=== PATIENT | female | born 1965 | race Caucasian/White ===

== ENCOUNTER 2020-06-15 16:35 | Emergency (ER) | payer SELFPAY ==
[2020-06-15 16:51] VITALS: BP 137/55; PULSE 98
[2020-06-15] MEDS ORDERED: Diazepam 5 MG Tab PO ONE (17:07)
--- NOTE | 2020-06-15 17:10 | EDM.PDOC ---
ED HPI GENERAL MEDICAL PROBLEM - General Chief Complaint: Back Pain or Injury Stated Complaint: LOWER RT BACK PAIN Time Seen by Provider: 06/15/20 16:55 Source of Information: Reports: Patient, Old Records, RN History Limitations: Reports: No Limitations - History of Present Illness INITIAL COMMENTS - FREE TEXT/NARRATIVE: 54 yo female was lifting some water jugs yesterday and toward the end of the day experienced L low back pain and tightness. No bowel or bladder dysfunction. No numbness or weakness of her legs. No increased pain with coughing. No self tx. Is not missing work. Had Flexeril in the past without relief. Onset: Gradual Onset Date: 06/14/20 Duration: Day(s): (1), Constant Location: Reports: Back Quality: Reports: Ache Severity: Severe Improves with: Reports: Rest Worsens with: Reports: Movement Context: Reports: Other (see HPI) Associated Symptoms: Reports: No Other Symptoms Treatments BILL CLERK: Reports: Acetaminophen (one single dose) Lower Back Pain Score (Numeric/FACES): 7 - Related Data Allergies Allergy/AdvReac Type Severity Reaction Status Date / Time No Known Allergies Allergy Verified 12/23/13 06:04 Home Meds: Home Meds Levothyroxine Sodium 125 mcg PO DAILY 11/22/13 [History] FLUoxetine HCl [Prozac] 20 mg PO DAILY 12/08/13 [History] Acetaminophen 500 mg PO Q6H PRN 06/15/20 [History] Past Medical History HEENT History: Reports: Impaired Vision Other Cardiovascular History: prolapsed mitral valve Musculoskeletal History: Reports: Back Pain, Chronic Endocrine/Metabolic History: Reports: Hypothyroidism Other Endocrine/Metabolic History: graves disease - Infectious Disease History Infectious Disease History: Reports: Chicken Pox - Past Surgical History GI Surgical History: Reports: Cholecystectomy Musculoskeletal Surgical History: Reports: Knee Replacement, Shoulder Replacement, Other (See Below) Other Musculoskeletal Surgeries/Procedures:: wrist surgery Social & Family History - Tobacco Use Tobacco Use Status *Q: Light Tobacco User Years of Tobacco use: 25 Packs/Tins Daily: 0.2 Used Tobacco, but Quit: No - Caffeine Use Caffeine Use: Reports: Coffee, Energy Drinks - Recreational Drug Use Recreational Drug Use: No ED ROS GENERAL - Review of Systems Review Of Systems: See Below Constitutional: Reports: No Symptoms : Reports: No Symptoms Musculoskeletal: Reports: Back Pain Skin: Reports: No Symptoms Neurological: Reports: No Symptoms ED EXAM,LOWER BACK PAIN/INJURY - Physical Exam Exam: See Below Exam Limited By: No Limitations General Appearance: Alert, WD/WN, No Apparent Distress Back Exam: Normal Inspection, Decreased Range of Motion, Muscle Spasm (R lumbar paraspinous), Paraspinal Tenderness (R lumbar). No: CVA Tenderness (R), CVA Tenderness (L), Vertebral Tenderness Extremities: Normal Inspection Neurological: Alert, Normal Mood/Affect, CN II-XII Intact, No Motor/Sensory Deficits, Oriented x 3 Psychiatric: Normal Affect, Normal Mood Skin Exam: Warm, Dry, Intact, Normal Color, No Rash Course - Vital Signs Last Recorded V/S: Last Vital Signs Temp 38 C 06/15/20 16:49 Pulse 98 06/15/20 16:49 Resp 20 06/15/20 16:49 BP 137/55 L 06/15/20 16:49 Pulse Ox 97 06/15/20 16:49 Departure - Departure Time of Disposition: 17:06 Disposition: Home, Self-Care 01 Condition: Fair Clinical Impression: Muscle spasm - Discharge Information *PRESCRIPTION DRUG MONITORING PROGRAM REVIEWED*: No *COPY OF PRESCRIPTION DRUG MONITORING REPORT IN PATIENT MORENO: No Instructions: Muscle Strain, [id number] Referrals: Pau Trimble CNM [Primary Care Provider] - Additional Instructions: Take ibuprofen 600 mg every 6 hrs with food. Add acetaminophen 1000 mg every 6 hrs for added relief. Use diazepam as directed for the spasm. Avoid lifting, bending, or twisting. Apply moist heat to area and massage Chevy[place]Nolan or other agent over the area. Recheck with your doctor as needed. Sepsis Event Note (ED) - Evaluation Sepsis Screening Result: No Definite Risk - Focused Exam Vital Signs: Vital Signs Temp Pulse Resp BP Pulse Ox 06/15/20 16:49 38 C 98 20 137/55 L 97
== END 2020-06-15 17:28 | disposition home or self-care (01) ==
LOC: JP.ED 16:35
DX: M62.830 Muscle spasm of back (principal); E03.9 Hypothyroidism, unspecified; Z72.0 Tobacco use; Z79.899 Other long term (current) drug therapy
CPT/HCPCS: 99283; A9270

== ENCOUNTER 2020-08-30 22:15 | Emergency (ER) | payer MEDICAID ==
--- NOTE | 2020-08-30 22:55 | EDM.PDOCBH ---
ED HPI GENERAL MEDICAL PROBLEM - General Chief Complaint: Drug or Alcohol Abuse Stated Complaint: POSSIBLE OVERDOSE Time Seen by Provider: 08/30/20 22:35 Source of Information: Reports: Patient, Family, Old Records, RN History Limitations: Reports: No Limitations - History of Present Illness INITIAL COMMENTS - FREE TEXT/NARRATIVE: 54 yo female who has been depressed recently ingested roughly 5 x 10 mg Ambien and some alcohol tonight. Is here with her sister. Cecile has recently gone through a divorce and recently moved back to this area after the divorce. The sister does not believe that Cecile took any other medications tonight. Onset: Today (ingestion), Gradual (worsening of her depression. ) Onset Date: 08/30/20 Duration: Hour(s): (~1), Constant Location: Reports: Generalized Quality: Reports: Other (pain not reported) Severity: Moderate Improves with: Reports: None Worsens with: Reports: Other (ingestions) Context: Reports: Other (See HPI) Associated Symptoms: Reports: Malaise (since her ingestions). Denies: Nausea/Vomiting Treatments PACKAGE REINSPECTOR: Reports: Other (see below) (none) - Related Data Allergies Allergy/AdvReac Type Severity Reaction Status Date / Time No Known Allergies Allergy Verified 08/30/20 22:56 Home Meds: Home Meds Levothyroxine Sodium 150 mcg PO DAILY 11/22/13 [History] FLUoxetine HCl [Prozac] 10 mg PO DAILY 12/08/13 [History] Acetaminophen 500 mg PO Q6H PRN 06/15/20 [History] Past Medical History HEENT History: Reports: Impaired Vision Other Cardiovascular History: prolapsed mitral valve Musculoskeletal History: Reports: Back Pain, Chronic Endocrine/Metabolic History: Reports: Hypothyroidism Other Endocrine/Metabolic History: graves disease - Infectious Disease History Infectious Disease History: Reports: Chicken Pox - Past Surgical History GI Surgical History: Reports: Cholecystectomy Musculoskeletal Surgical History: Reports: Knee Replacement, Shoulder Replacement, Other (See Below) Other Musculoskeletal Surgeries/Procedures:: wrist surgery Social & Family History - Caffeine Use Caffeine Use: Reports: Coffee, Energy Drinks ED ROS GENERAL - Review of Systems Review Of Systems: See Below Constitutional: Reports: No Symptoms HEENT: Reports: No Symptoms Respiratory: Reports: No Symptoms Cardiovascular: Reports: No Symptoms GI/Abdominal: Reports: No Symptoms : Reports: No Symptoms Musculoskeletal: Reports: No Symptoms Skin: Reports: No Symptoms Neurological: Reports: Other (sleepy) Psychiatric: Reports: Depression, Other (says she took the Ambien just to sleep due to not being able to sleep for quite awhile. ) ED EXAM, BEHAVIORAL HEALTH - Physical Exam Exam: See Below Exam Limited By: Other (sedation) General Appearance: Alert, WD/WN, No Apparent Distress, Lethargic Eye Exam: Bilateral Eye: Conjunctival Injection, Normal Inspection Ears: Normal External Exam, Normal Canal, Hearing Grossly Normal, Normal TMs Nose: Normal Inspection, No Blood Throat/Mouth: Normal Inspection, Normal Lips, Normal Oropharynx, Normal Voice, No Airway Compromise Head: Atraumatic, Normocephalic Neck: Normal Inspection Respiratory/Chest: No Respiratory Distress, Lungs Clear, Normal Breath Sounds, No Accessory Muscle Use Cardiovascular: Regular Rate, Rhythm, No Edema GI/Abdominal: Soft, Non-Tender, No Distention Extremities: Normal Inspection, Normal Range of Motion, Non-Tender, No Pedal Edema Neurological: CN II-XII Intact, Inattentive, Other (somnolent) Psychiatric: Flat Affect, Inattentive, Poor Eye Contact Skin Exam: Warm, Dry, Intact, Normal color, No rash COURSE, BEHAVIORAL HEALTH COMP - Course Vital Signs: Last Vital Signs Temp 36.4 C 08/30/20 23:02 Pulse 74 08/30/20 23:02 Resp 18 08/30/20 23:02 BP 118/64 08/30/20 23:02 Pulse Ox 94 L 08/30/20 23:02 Orders, Labs, Meds: Laboratory Tests 08/30/20 08/30/20 08/30/20 Range/Units 22:36 22:36 22:48 WBC (4.5-11.0) K/uL RBC (3.30-5.50) M/uL Hgb (12.0-15.0) g/dL Hct (36.0-48.0) % MCV (80-98) fL MCH (27-31) pg MCHC (32-36) % Plt Count (150-400) K/uL Sodium (140-148) mmol/L Potassium (3.6-5.2) mmol/L Chloride (100-108) mmol/L Carbon Dioxide (21-32) mmol/L Anion Gap (5.0-14.0) mmol/L BUN (7-18) mg/dL Creatinine (0.6-1.0) mg/dL Est Cr Clr Drug Dosing Estimated GFR (MDRD) (>60) Glucose (74-106) mg/dL Calcium (8.5-10.1) mg/dL TSH, Ultra Sensitive (0.358-3.740) uIU/mL Urine Color Yellow (YELLOW) Urine Appearance Clear (CLEAR) Urine pH 7.0 (5.0-8.0) Ur Specific [place] 1.015 (1.008-1.030) Urine Protein Negative (NEGATIVE) mg/dL Urine Glucose (UA) Negative (NEGATIVE) mg/dL Urine Ketones Negative (NEGATIVE) mg/dL Urine Occult Blood Negative (NEGATIVE) Urine Nitrite Negative (NEGATIVE) Urine Bilirubin Negative (NEGATIVE) Urine Urobilinogen 0.2 (0.2-1.0) EU/dL Ur Leukocyte Esterase Negative (NEGATIVE) Urine RBC Not seen (0-5) Urine WBC Not seen (0-5) Ur Epithelial Cells Not seen Amorphous Sediment Not seen Urine Bacteria Not seen Urine Mucus Not seen Salicylates (2.0-20.0) mg/dL Urine Opiates Screen Negative (NEGATIVE) Ur Oxycodone Screen Negative (NEGATIVE) Urine Methadone Screen Negative (NEGATIVE) Ur Propoxyphene Screen Negative (NEGATIVE) Acetaminophen (10.0-30.0) ug/mL Ur Barbiturates Screen Negative (NEGATIVE) Ur Tricyclics Screen Negative (NEGATIVE) Ur Phencyclidine Scrn Negative (NEGATIVE) Ur Amphetamine Screen Negative (NEGATIVE) U Methamphetamines Scrn Negative (NEGATIVE) Urine MDMA Screen Negative (NEGATIVE) U Benzodiazepines Scrn Presumptive positive H (NEGATIVE) U Cocaine Metab Screen Negative (NEGATIVE) U Marijuana (THC) Screen Negative (NEGATIVE) Ethyl Alcohol 6 mg/dL 08/30/20 08/30/20 08/30/20 Range/Units 22:48 22:48 22:48 WBC 7.4 (4.5-11.0) K/uL RBC 4.14 (3.30-5.50) M/uL Hgb 13.2 (12.0-15.0) g/dL Hct 39.5 (36.0-48.0) % MCV 95 (80-98) fL MCH 32 H (27-31) pg MCHC 33 (32-36) % Plt Count 350 (150-400) K/uL Sodium 145 (140-148) mmol/L Potassium 3.8 (3.6-5.2) mmol/L Chloride 105 (100-108) mmol/L Carbon Dioxide 26 (21-32) mmol/L Anion Gap 13.6 (5.0-14.0) mmol/L BUN 12 D (7-18) mg/dL Creatinine 0.8 (0.6-1.0) mg/dL Est Cr Clr Drug Dosing TNP Estimated GFR (MDRD) > 60 (>60) Glucose 118 H (74-106) mg/dL Calcium 9.8 (8.5-10.1) mg/dL TSH, Ultra Sensitive 0.152 L (0.358-3.740) uIU/mL Urine Color (YELLOW) Urine Appearance (CLEAR) Urine pH (5.0-8.0) Ur Specific [place] (1.008-1.030) Urine Protein (NEGATIVE) mg/dL Urine Glucose (UA) (NEGATIVE) mg/dL Urine Ketones (NEGATIVE) mg/dL Urine Occult Blood (NEGATIVE) Urine Nitrite (NEGATIVE) Urine Bilirubin (NEGATIVE) Urine Urobilinogen (0.2-1.0) EU/dL Ur Leukocyte Esterase (NEGATIVE) Urine RBC (0-5) Urine WBC (0-5) Ur Epithelial Cells Amorphous Sediment Urine Bacteria Urine Mucus Salicylates 3.2 (2.0-20.0) mg/dL Urine Opiates Screen (NEGATIVE) Ur Oxycodone Screen (NEGATIVE) Urine Methadone Screen (NEGATIVE) Ur Propoxyphene Screen (NEGATIVE) Acetaminophen 0.0 L (10.0-30.0) ug/mL Ur Barbiturates Screen (NEGATIVE) Ur Tricyclics Screen (NEGATIVE) Ur Phencyclidine Scrn (NEGATIVE) Ur Amphetamine Screen (NEGATIVE) U Methamphetamines Scrn (NEGATIVE) Urine MDMA Screen (NEGATIVE) U Benzodiazepines Scrn (NEGATIVE) U Cocaine Metab Screen (NEGATIVE) U Marijuana (THC) Screen (NEGATIVE) Ethyl Alcohol mg/dL Medical Clearance: 08/31/20 00:03 Medically stable, will let her sleep off the Ambien and alcohol and get a Crisis consult in the morning. Discharge vs Psych Eval/Treatment:: 08/31/20 01:57 Crisis was called and per a phone consult felt patient could be discharged to home if her sister would stay with her. Departure - Departure Time of Disposition: 02:15 Disposition: Home, Self-Care 01 Condition: Fair Clinical Impression: Ambien accidental overdose Qualifiers: Encounter type: initial encounter Qualified Code(s): T42.6X1A - Poisoning by other antiepileptic and sedative-hypnotic drugs, accidental (unintentional), initial encounter Depression Qualifiers: Depression Type: unspecified Qualified Code(s): F32.9 - Major depressive disorder, single episode, unspecified Insomnia Qualifiers: Insomnia type: unspecified Qualified Code(s): G47.00 - Insomnia, unspecified - Discharge Information *PRESCRIPTION DRUG MONITORING PROGRAM REVIEWED*: Not Applicable *COPY OF PRESCRIPTION DRUG MONITORING REPORT IN PATIENT MORENO: Not Applicable Referrals: PCP,None [Primary Care Provider] - Forms: ED Department Discharge Additional Instructions: F/U with your primary care provider to discuss your depression and sleep issues. Also, your thyroid looks to be a bit over treated as your TSH today was low at 0.152. Return as needed. Sepsis Event Note (ED) - Focused Exam Vital Signs: Vital Signs Temp Pulse Resp BP Pulse Ox 08/30/20 23:02 36.4 C 74 18 118/64 94 L 08/30/20 22:33 36.4 C 74 18 118/64 94 L
[2020-08-31 02:35] VITALS: BP 133/85; PULSE 65
== END 2020-08-31 02:28 | disposition home or self-care (01) ==
LOC: JP.ED 22:15
DX: T42.6X1A Poisoning by other antiepileptic and sedative-hypnotic drugs, accidental (unintentional), initial encounter (principal); F32.9 Major depressive disorder, single episode, unspecified; G47.00 Insomnia, unspecified; E03.9 Hypothyroidism, unspecified; Z79.899 Other long term (current) drug therapy
CPT/HCPCS: 36415; 80048; 80143; 80179; 80305-QW; 80307; 81001; 84443; 85027; 99284

== ENCOUNTER 2021-04-04 13:17 | Emergency (ER) | payer MEDICAID ==
--- NOTE | 2021-04-04 14:32 | EDM.PDOC ---
ED HPI GENERAL MEDICAL PROBLEM - General Chief Complaint: Cardiovascular Problem Stated Complaint: IRREGULAR HEARTBEAT SINCE LAST NIGHT Time Seen by Provider: 04/04/21 14:29 Source of Information: Reports: Patient History Limitations: Reports: No Limitations - History of Present Illness INITIAL COMMENTS - FREE TEXT/NARRATIVE: pt has been having palpitations and just had a bernstein monitor. Megan Trimble called in a perscription for metoprol 25 and she was just going to fill that. Onset: Gradual, Other ( it was worse last nite and she felt like it was very irregular. ) Duration: Hour(s): Location: Reports: Chest Associated Symptoms: Reports: Other (heart irregularity. ) - Related Data Allergies Allergy/AdvReac Type Severity Reaction Status Date / Time No Known Allergies Allergy Verified 04/04/21 13:38 Home Meds: Home Meds Levothyroxine Sodium 137 mcg PO DAILY 11/22/13 [History] FLUoxetine HCl [Prozac] 10 mg PO DAILY 12/08/13 [History] Acetaminophen 500 mg PO Q6H PRN 06/15/20 [History] Metoprolol Tartrate 25 mg PO BID 04/04/21 [History] Past Medical History HEENT History: Reports: Impaired Vision Other Cardiovascular History: prolapsed mitral valve Musculoskeletal History: Reports: Back Pain, Chronic Endocrine/Metabolic History: Reports: Hypothyroidism Other Endocrine/Metabolic History: graves disease - Infectious Disease History Infectious Disease History: Reports: Chicken Pox - Past Surgical History GI Surgical History: Reports: Cholecystectomy Musculoskeletal Surgical History: Reports: Knee Replacement, Shoulder Replacement, Other (See Below) Other Musculoskeletal Surgeries/Procedures:: wrist surgery Social & Family History - Tobacco Use Tobacco Use Status *Q: Light Tobacco User Years of Tobacco use: 30 Packs/Tins Daily: 0.3 - Caffeine Use Caffeine Use: Reports: Coffee, Soda - Recreational Drug Use Recreational Drug Use: No ED ROS GENERAL - Review of Systems Review Of Systems: See Below Constitutional: Reports: No Symptoms HEENT: Reports: No Symptoms Respiratory: Reports: No Symptoms Cardiovascular: Reports: Palpitations Endocrine: Reports: No Symptoms GI/Abdominal: Reports: No Symptoms : Reports: No Symptoms Musculoskeletal: Reports: No Symptoms Skin: Reports: No Symptoms ED EXAM, GENERAL - Physical Exam Exam: See Below Free Text/Narrative:: pt arrived feeling like her heart was pounding hard and irregular. she did not have chest pain. She had difficulty sleeping last nite because of the rhythm. Exam Limited By: No Limitations General Appearance: Alert, No Apparent Distress, Anxious Ears: Normal TMs Nose: Normal Inspection Throat/Mouth: Normal Inspection Head: Atraumatic Neck: Normal Inspection Respiratory/Chest: No Respiratory Distress Cardiovascular: Extra Beats, Other (pt has a basic sinus rhythm with ectopics. This is what showed up on the holter monitor. ) GI/Abdominal: Soft, Non-Tender (Female) Exam: Deferred Rectal (Female) Exam: Deferred Back Exam: Normal Inspection Extremities: Normal Inspection Neurological: Alert, Oriented Psychiatric: Anxious Course - Vital Signs Last Recorded V/S: Last Vital Signs Temp 36.7 C 04/04/21 13:36 Pulse 70 04/04/21 15:07 Resp 19 04/04/21 15:07 BP 125/77 04/04/21 15:07 Pulse Ox 94 L 04/04/21 13:36 - Orders/Labs/Meds Labs: Laboratory Tests 04/04/21 04/04/21 04/04/21 Range/Units 14:39 14:39 14:39 WBC 7.4 (4.5-11.0) K/uL RBC 4.70 (3.30-5.50) M/uL Hgb 14.8 (12.0-15.0) g/dL Hct 42.7 (36.0-48.0) % MCV 91 (80-98) fL MCH 32 H (27-31) pg MCHC 35 (32-36) % Plt Count 334 (150-400) K/uL Neut % (Auto) 41.6 (36-66) % Lymph % (Auto) 41.6 (24-44) % [place] % (Auto) 11.1 H (2-6) % Eos % (Auto) 5.0 H (2-4) % Baso % (Auto) 0.7 (0-1) % Sodium 143 (140-148) mmol/L Potassium 4.1 (3.6-5.2) mmol/L Chloride 108 (100-108) mmol/L Carbon Dioxide 25 (21-32) mmol/L Anion Gap 9.8 (5.0-14.0) mmol/L BUN 11 (7-18) mg/dL Creatinine 0.8 (0.6-1.0) mg/dL Est Cr Clr Drug Dosing 74.38 mL/min Estimated GFR (MDRD) > 60 (>60) Glucose 114 H (74-106) mg/dL Calcium 8.9 (8.5-10.1) mg/dL Magnesium 1.9 (1.8-2.4) mg/dL Total Bilirubin 0.2 (0.2-1.0) mg/dL AST 12 L (15-37) U/L ALT 23 (12-78) U/L Alkaline Phosphatase 94 (46-116) U/L Total Protein 6.7 (6.4-8.2) g/dL Albumin 3.5 (3.4-5.0) g/dL Globulin 3.2 (2.3-3.5) g/dL Albumin/Globulin Ratio 1.1 L (1.2-2.2) Meds: Medications Discontinued Medications Generic Name Dose Route Start Last Admin Trade Name Freq PRN Reason Stop Dose Admin Metoprolol Tartrate 25 mg 04/04/21 14:38 04/04/21 14:55 Metoprolol Tartrate 25 Mg Tab PO 04/04/21 14:39 25 mg ONETIME ONE Administration - Re-Assessments/Exams Free Text/Narrative Re-Assessment/Exam: 04/04/21 15:18 her rhythm shows frequent ectopics which does reset the rhythm, She has just been put on metoprol. Her electrolytes look great. She was given 25 of metoprol while in er. Departure - Departure Time of Disposition: 15:12 Disposition: Home, Self-Care 01 Condition: Fair Clinical Impression: Irregular heart rhythm Referrals: Pau Trimble CNM [Primary Care Provider] - Forms: ED Department Discharge Care Plan Goals: pt is to take the metoprol and followup with Megan Trimble in 1 week Sepsis Event Note (ED) - Evaluation Sepsis Screening Result: No Definite Risk - Focused Exam Vital Signs: Vital Signs Temp Pulse Pulse Resp BP BP Pulse Ox 04/04/21 15:07 70 19 125/77 04/04/21 14:56 80 16 128/68 04/04/21 14:55 80 128/68 04/04/21 13:36 36.7 C 89 24 H 124/78 94 L
[2021-04-04] MEDS ORDERED: Metoprolol Tartrate 25 MG Tab PO ONE (14:38)
[2021-04-04 15:07] VITALS: BP 125/77; PULSE 70
== END 2021-04-04 15:31 | disposition home or self-care (01) ==
LOC: JP.ED 13:17
DX: I49.9 Cardiac arrhythmia, unspecified (principal); E03.9 Hypothyroidism, unspecified; Z79.899 Other long term (current) drug therapy; Z72.0 Tobacco use
CPT/HCPCS: 36415; 80053; 83735; 85025; 99284; A9270

== ENCOUNTER 2021-07-11 17:49 | Emergency (ER) | payer MEDICAID ==
[2021-07-11] MEDS ORDERED: Sodium Chloride 0.9% 10 ML Syringe FLUSH PRN (17:57)
[2021-07-11 18:05] VITALS: BP 140/63; PULSE 94
== END 2021-07-11 18:59 | disposition home or self-care (01) ==
LOC: JP.ED 17:49
DX: R06.02 Shortness of breath (principal); E03.9 Hypothyroidism, unspecified; Z79.899 Other long term (current) drug therapy
CPT/HCPCS: 36415; 71045; 71045-26; 80048; 85025; 85379; 93005; 93010; 99282; 99285-25

== ENCOUNTER 2021-09-21 08:18 | Day surgery (SDC) | payer MEDICAID ==
[~2021-09-21 08:18] MED LIST: Midazolam 1 MG/ML 2 ML SDV ONE; Propofol 200 MG/20 ML SDV ONE; fentaNYL 100 MCG/2 ML SDV ONE
[2021-09-21] MEDS ORDERED: Sodium Chloride 0.9% 1,000 ML IV SCH (09:30)
[2021-09-21 11:17] VITALS: BP 102/75; PULSE 73
== END 2021-09-21 11:32 | disposition home or self-care (01) ==
LOC: JP.SDS 08:18
PROVIDERS: ATTEND Surgery
DX: Z12.11 Encounter for screening for malignant neoplasm of colon (principal); I10 Essential (primary) hypertension
CPT/HCPCS: J2250; J2704; J3010; J7030

== ENCOUNTER 2022-09-24 16:03 | Emergency (ER) | payer MEDICAID ==
[2022-09-24 17:03] VITALS: BP 129/59; PULSE 58
== END 2022-09-24 17:15 | disposition home or self-care (01) ==
LOC: JP.ED 16:03
DX: R00.2 Palpitations (principal); I10 Essential (primary) hypertension; E03.9 Hypothyroidism, unspecified; Z86.16 Personal history of COVID-19; Z87.891 Personal history of nicotine dependence; Z79.899 Other long term (current) drug therapy
CPT/HCPCS: 93005; 99284

== ENCOUNTER 2022-11-23 17:23 | Emergency (ER) | payer MEDICAID ==
[2022-11-23] MEDS ORDERED: Ondansetron 4 MG/2 ML SDV IVPUSH ONE (18:18)
[2022-11-23] MEDS ORDERED: Ketorolac 30 MG/ML SDV IVPUSH ONE (18:18)
[2022-11-23] MEDS ORDERED: Iopamidol 612 MG/ML 100 ML Bottle IV SCH (18:30)
[2022-11-23] MEDS ORDERED: Lactated Ringers 1,000 ML IV SCH (18:30)
[2022-11-23] MEDS ORDERED: cefTRIAXone 1 GM in Sodium Chloride 0.9% 50 ML IV SCH (18:30)
[2022-11-23] MEDS ORDERED: Sodium Chloride 0.9% 50 ML IV SCH (18:30)
[2022-11-23 18:36] LABS: BASOPHILS ABSOLUTE AUTO 0.03 K/uL (0.00-0.10); BASOPHILS PERCENT AUTO 0.4 % (0.1-1.3); EOSINOPHILS PERCENT AUTO 0.2 % (0.0-5.4); HEMATOCRIT 39.5 % (34.3-46.0); HEMOGLOBIN 13.6 g/dL (11.2-15.5); IMMATURE GRAN ABSOLUTE AUTO 0.05 K/uL (0.00-0.23); IMMATURE GRAN PERCENT AUTO 0.6 % (0.0-0.7); LYMPHOCYTES ABSOLUTE AUTO 1.49 K/uL (0.8-3.3); LYMPHOCYTES PERCENT AUTO 17.6 % (11.4-47.7); MEAN CORPUSCULAR HEMOGLOBIN 31.5 pg (31.6-35.5); MEAN CORPUSCULAR HGB CONC 34.4 g/dL (31.6-35.5); MEAN CORPUSCULAR VOLUME 91.4 fL (81.4-99.0); MONOCYTES ABSOLUTE AUTO 1.02 K/uL (0.20-0.90); NEUTROPHILS ABSOLUTE AUTO 5.88 K/uL (1.0-7.6); NEUTROPHILS PERCENT AUTO 69.2 % (40.0-78.1); PLATELET COUNT,PLT 232 K/uL (130-375); RED BLOOD CELL COUNT 4.32 M/uL (3.77-5.24); WHITE BLOOD CELL COUNT,WBC 8.5 K/uL (3.2-11.0)
[2022-11-23 18:49] LABS: EOSINOPHILS ABSOLUTE AUTO 0.02 K/uL (0.00-0.40)
[2022-11-23 19:01] LABS: LACTIC ACID 1.3 mmol/L (0.4-2.0)
[2022-11-23 19:10] LABS: A/G RATIO 0.8 (1.2-2.2); ALANINE AMINOTRANSFERASE,ALT 73 U/L (12-78); ALBUMIN 3.1 g/dL (3.4-5.0); ALKALINE PHOSPHATASE 117 U/L (46-116); ASPARTATE AMNIOTRANSFERASE,AST 42 U/L (15-37); BILIRUBIN TOTAL 0.8 mg/dL (0.2-1.0); BLOOD UREA NITROGEN,BUN 9 mg/dL (7-18); C-REACTIVE PROTEIN 24.29 mg/dL (0.0-0.3); CALCIUM 8.7 mg/dL (8.5-10.1); CARBON DIOXIDE,CO2 27 mmol/L (21-32); CHLORIDE,CL 98 mmol/L (100-108); CREATININE 1.2 mg/dL (0.6-1.0); EST CRCL DRUG DOSING (CG) 48.42 mL/min; ESTIMATED GFR 53 mL/min (>60); GLUCOSE RANDOM 118 mg/dL (74-106); POTASSIUM,K 3.8 mmol/L (3.6-5.2); SODIUM,NA 133 mmol/L (140-148)
[2022-11-23 19:11] LABS: ANION GAP 11.8 mmol/L (5.0-14.0)
[2022-11-23 19:33] LABS: APPEARANCE,URINE SLIGHTLY CLOUDY (CLEAR); BILIRUBIN,URINE NEGATIVE (NEGATIVE); COLOR,URINE YELLOW (YELLOW); GLUCOSE,URINE NEGATIVE (NEGATIVE); KETONES,URINE NEGATIVE (NEGATIVE); LEUKOCYTE ESTERASE,URINE NEGATIVE (NEGATIVE); NITRITE,URINE NEGATIVE (NEGATIVE); OCCULT BLOOD,URINE NEGATIVE (NEGATIVE); PROTEIN,URINE 30 mg/dL (NEGATIVE)
[2022-11-23] MEDS ORDERED: Acetaminophen 325 MG Tab PO ONE (19:33)
[2022-11-23 19:39] LABS: AMORPHOUS SEDIMENT,URINE NOT SEEN; BACTERIA,URINE RARE; EPITHELIAL CELLS,URINE RARE; MUCUS,URINE NOT SEEN; RBC,URINE 0-5 (0-5)
[2022-11-23 21:19] VITALS: BP 95/47; PULSE 71
[2022-11-24] MEDS ORDERED: cefTRIAXone 1 GM in Sodium Chloride 0.9% 50 ML IV SCH (16:00)
== END 2022-11-23 22:05 | disposition home or self-care (01) ==
LOC: JP.ED 17:23
DX: N12 Tubulo-interstitial nephritis, not specified as acute or chronic (principal); I10 Essential (primary) hypertension; E03.9 Hypothyroidism, unspecified; Z86.16 Personal history of COVID-19; Z79.899 Other long term (current) drug therapy
CPT/HCPCS: 36415; 74177; 80053; 81001; 83605; 84145; 85025; 86140; 87040; 87077; 87186; 96361; 96365; 96375; 99284; A9270; J0696; J1885; J2405; J3490; J7120; Q9967

== ENCOUNTER 2024-05-25 02:16 | Emergency (ER) | payer MEDICAID ==
[2024-05-25 02:28] VITALS: BP 102/33; PULSE 52
[2024-05-25 03:44] LABS: BASOPHILS ABSOLUTE AUTO 0.03 K/uL (0.00-0.10); BASOPHILS PERCENT AUTO 0.3 % (0.1-1.3); EOSINOPHILS ABSOLUTE AUTO 0.24 K/uL (0.00-0.40); EOSINOPHILS PERCENT AUTO 2.5 % (0.0-5.4); HEMATOCRIT 38.6 % (34.3-46.0); HEMOGLOBIN 13.4 g/dL (11.2-15.5); IMMATURE GRAN ABSOLUTE AUTO 0.02 K/uL (0.00-0.23); IMMATURE GRAN PERCENT AUTO 0.2 % (0.0-0.7); LYMPHOCYTES ABSOLUTE AUTO 3.42 K/uL (0.8-3.3); MEAN CORPUSCULAR HEMOGLOBIN 32.1 pg (31.6-35.5); MEAN CORPUSCULAR HGB CONC 34.7 g/dL (31.6-35.5); MEAN CORPUSCULAR VOLUME 92.3 fL (81.4-99.0); MONOCYTES ABSOLUTE AUTO 0.57 K/uL (0.20-0.90); NEUTROPHILS ABSOLUTE AUTO 5.23 K/uL (1.0-7.6); PLATELET COUNT,PLT 293 K/uL (130-375); RED BLOOD CELL COUNT 4.18 M/uL (3.77-5.24); WHITE BLOOD CELL COUNT,WBC 9.5 K/uL (3.2-11.0)
[2024-05-25 04:07] LABS: ALANINE AMINOTRANSFERASE,ALT 23 U/L (12-78); ALBUMIN 3.7 g/dL (3.4-5.0); ALKALINE PHOSPHATASE 92 U/L (46-116); ASPARTATE AMNIOTRANSFERASE,AST 14 U/L (15-37); BILIRUBIN TOTAL 0.4 mg/dL (0.2-1.0); BLOOD UREA NITROGEN,BUN 12 mg/dL (7-18); CALCIUM 9.4 mg/dL (8.5-10.1); CARBON DIOXIDE,CO2 31 mmol/L (21-32); CHLORIDE,CL 99 mmol/L (100-108); EST CRCL DRUG DOSING (CG) 55.18 mL/min; ESTIMATED GFR 65 mL/min (>60); GLUCOSE RANDOM 102 mg/dL (74-106); POTASSIUM,K 4.4 mmol/L (3.6-5.2); PROTEIN TOTAL,TP 7.3 g/dL (6.4-8.2); SODIUM,NA 138 mmol/L (140-148)
[2024-05-25 04:08] LABS: ANION GAP 12.4 mmol/L (5.0-14.0)
== END 2024-05-25 04:38 | disposition home or self-care (01) ==
LOC: JP.ED 02:16
DX: R55 Syncope and collapse (principal); I10 Essential (primary) hypertension; E11.9 Type 2 diabetes mellitus without complications; E03.9 Hypothyroidism, unspecified; Z90.49 Acquired absence of other specified parts of digestive tract; Z96.619 Presence of unspecified artificial shoulder joint; Z96.659 Presence of unspecified artificial knee joint; Z79.84 Long term (current) use of oral hypoglycemic drugs; Z79.890 Hormone replacement therapy; Z79.899 Other long term (current) drug therapy
CPT/HCPCS: 36415; 71046; 71046-26; 80053; 83605; 84484; 85025; 93005; 93010; 99284; 99285